=== PATIENT | male | born 1950 | race Caucasian/White ===

== ENCOUNTER 2019-02-02 02:14 | Inpatient (IN) | payer MEDICARE, OTHER ==
[~2019-02-02] VITALS: Ht 177.8 cm; Wt 84.1 kg
[2019-02-02] MEDS ORDERED: normal saline 1000ML IV soln IV ONE (02:30)
[2019-02-02] MEDS ORDERED: piperacillin/tazo 3.375gm/50ml 50 ML IV ONE (02:30)
[2019-02-02] MEDS ORDERED: vancomycin/NS 1 GM ADD-VANTAGE 250 ML IV ONE (02:30)
[2019-02-02] MEDS ORDERED: ondansetron/PF 4mg/2ml inj IV ONE (02:40)
[2019-02-02] MEDS: morphine 4 MG/ML inj SYRINge IV PRN ×3 (02:42→12:22)
[2019-02-02 02:55] LABS: BASOPHILS % (AUTO) 0.2 % (0-1); EOSINOPHILS # (AUTO) 0.1 X10'3 (0-0.9); EOSINOPHILS % (AUTO) 0.7 % (0-6); HEMATOCRIT 42.6 % (42.0-52.0); HEMOGLOBIN 14.6 g/dl (14.0-17.9); LYMPHOCYTES # (AUTO) 1.8 X10'3 (1.1-4.8); LYMPHOCYTES % (AUTO) 14.9 % (21-51); MEAN CORPUSCULAR HGB CONC 34.3 g/dL (33.0-36.5); MEAN CORPUSCULAR VOLUME 98.9 FL (78-98); MEAN PLATELET VOLUME 8.2 FL (7.4-10.4); MONOCYTES # (AUTO) 1.6 X10'3 (0-0.9); MONOCYTES % (AUTO) 13.3 % (2-12); NEUTROPHILS # (AUTO) 8.4 X10'3 (1.8-7.7); NEUTROPHILS % (AUTO) 70.9 % (42-75); PLATELET COUNT 256 X10'3 (140-440); RED BLOOD COUNT 4.31 X10'6 (4.70-6.10); RED CELL DISTRIBUTION WIDTH 13.7 % (11.5-14.5); WHITE BLOOD COUNT 11.9 X10'3 (4.5-11.0)
[2019-02-02 03:14] LABS: ALANINE AMINOTRANSFERASE 22 U/L (12-78); ALBUMIN 3.5 G/DL (3.4-5.0); ALKALINE PHOSPHATASE 104 IU/L (46-116); ANION GAP 9 (8-16); ASPARTATE AMINO TRANSFERASE 10 U/L (10-37); BILIRUBIN,TOTAL 0.3 MG/DL (0.1-1.0); BLOOD UREA NITROGEN 12 MG/DL (7-18); BUN/CREATININE RATIO 12.1 (5.4-32.0); CALCIUM 8.8 MG/DL (8.5-10.1); CHLORIDE 107 MMOL/L (99-107); CREATININE 0.99 MG/DL (0.60-1.10); GLUCOSE 106 MG/DL (70-104); MAGNESIUM 1.7 MG/DL (1.5-2.4); POTASSIUM 3.9 MMOL/L (3.5-5.1); SODIUM 142 MMOL/L (135-145); TOTAL CARBON DIOXIDE 26.3 MMOL/L (24-32); eGFR 76 ML/MIN
[2019-02-02 03:17] LABS: PARTIAL THROMBOPLASTIN TIME 28 SECONDS (22-32)
--- NOTE | 2019-02-02 03:25 | NUR ---
Discussed pt's pain with johana Chaidez; new order received, Toradol 30mg
[2019-02-02] MEDS ORDERED: ketorolac trometh. 30mg/ml inj. IV ONE (03:30)
[2019-02-02] MEDS ORDERED: ketamine 10mg/ml 20ml inj 25 MG in normal saline 100ml IV soln 100.0 ML IV ONE (04:00)
[2019-02-02] MEDS ORDERED: magnesium hydroxide 30ml (MOM) UD suspension PO PRN (04:25)
[2019-02-02] MEDS ORDERED: mag hydrox/Alum hydrox/simeth 30ml oral suspension PO PRN (04:25)
[2019-02-02] MEDS ORDERED: HYDROcodone/acetaminophen 5mg/325mg tablet PO PRN (04:25)
[2019-02-02] MEDS ORDERED: acetaminophen 325mg tablet PO PRN (04:25)
--- NOTE | 2019-02-02 04:59 | NUR ---
Per pt request SO Joselin Minor is taking wallet including [employer] home.
[2019-02-02 05:12] LABS: CLARITY,URINE CLEAR (Clear); COLOR,URINE YELLOW (Yellow); GLUCOSE, URINE NEGATIVE (Neg); KETONES,URINE NEGATIVE (Neg); LEUKOCYTE ESTERASE ,URINE NEGATIVE (Neg); NITRITES, URINE NEGATIVE (Neg); OCCULT BLOOD,URINE TRACE-INTACT (Neg); PROTEIN,URINE NEGATIVE (Neg); UROBILINOGEN,URINE 0.2 E.U/dL (0.2-1.0)
[2019-02-02 05:13] LABS: UA COLLECTION TYPE VOIDED
[2019-02-02 05:18] LABS: BACTERIA,URINE NONE SEEN /HPF (Neg); MUCUS STRANDS NONE SEEN /LPF (Neg); RBC,URINE 0-2 /HPF (0-2); SQUAMOUS EPITHELIAL CELL,UR FEW /LPF (FEW); WBC,URINE 0-4 /HPF (0-4)
[2019-02-02] MEDS: normal saline 1000ml 1,000 ML IV SCH ×3 (05:19→23:42)
[2019-02-02 05:26] LABS: URINE AMPHETAMINE SCREEN NEGATIVE (Neg); URINE BARBITUATE SCREEN NEGATIVE (Neg); URINE BENZODIAZEPINES SCREEN NEGATIVE (Neg); URINE CANNABINOID SCREEN POSITIVE (Neg); URINE COCAINE SCREEN NEGATIVE (Neg); URINE METHADONE SCREEN NEGATIVE (Neg); URINE OPIATE SCREEN POSITIVE (Neg); URINE PHENCYCLIDINE SCREEN NEGATIVE (Neg)
[2019-02-02] MEDS: enoxaparin 40mg/0.4ml syringe SUBCUT SCH (07:49)
--- NOTE | 2019-02-02 08:00 | NUR ---
Received report from EULALIA Jin asked for her to wait for myself or charge to call due to room being cleaned. Sent patient anyway, housekeeping in room cleaning.
[2019-02-02] MEDS: HYDROmorphone inj. 0.5 MG/0.5 ML DISP.SYRIN IV PRN ×2 (08:32→15:51)
[2019-02-02] MEDS ORDERED: magnesium Cl slow-release 64mg tablet PO PRN (08:50)
[2019-02-02] MEDS ORDERED: cefepime 1GM in D5W 50mL 50 ML IV SCH (08:50)
[2019-02-02] MEDS ORDERED: magnesium 4gm in 100ml NS 100 ML IV PRN (08:50)
[2019-02-02] MEDS ORDERED: potassium CL 10mEq/100ml bag 100 ML IV PRN (08:50)
[2019-02-02] MEDS ORDERED: potassium Cl 20 mEq SR tablet PO PRN (08:50)
[2019-02-02 10:00] VITALS: BP 145/70
[2019-02-02] MEDS ORDERED: cefepime 1GM/NS ADD-VANTAGE 50 ML IV SCH (10:33)
[2019-02-02] MEDS ORDERED: TIOT18CA3 IH (11:56)
[2019-02-02] MEDS ORDERED: SERT-153 PO (11:56)
[2019-02-02] MEDS ORDERED: ALBU8.5H8 IH (11:56)
[2019-02-02] MEDS ORDERED: OMEP40CA13 PO (11:56)
[2019-02-02] MEDS ORDERED: CYAN-51 PO (11:56)
[2019-02-02] MEDS ORDERED: CHOL100046 PO (11:56)
[2019-02-02] MEDS ORDERED: BUDE10.2 INH (11:56)
--- NOTE | 2019-02-02 14:22 | NUR ---
Malnutrition consult: Current documented wt is 185 lbs resulting in BMI of 26.6 however wt is pt stated, no wt hx in EMR. Pt admit with right foot cellulitis. Pt out of room during first visit and pt unavailable during second attempted visit, written protein education with RD contact information left at beside. Pt currently on regular diet with documented 75% PO intake likely meeting nutrient needs. Pending physical assessment. Per H&P pt appears well nourished. Pt currently lacks a minimum of two criteria for malnutrition. Will continue to follow. Addendum: 02/02/19 at [address] Amended: Links added.
[2019-02-02] MEDS: VANCOmycin 1250MG/NS 250ml Bag 250 ML IV SCH (15:00)
[2019-02-02] MEDS ORDERED: LORazepam 2 mg/ml vial IV ONE ×2 (15:55)
[2019-02-02] MEDS: cefepime 1GM/NS ADD-VANTAGE 100 ML IV SCH ×2 (16:00→23:42)
[2019-02-02] MEDS: acetaminophen 325mg tablet PO PRN ×2 (17:23→23:01)
[2019-02-02 18:00] VITALS: BP 119/58
--- NOTE | 2019-02-02 18:43 | NUR ---
Problems reprioritized. Patient report given, questions answered & plan of care reviewed with Tali ESTEBAN.
[2019-02-02 19:15] VITALS: BP 107/58
[2019-02-02] MEDS: lactobacillus rhamnosus 10,000 MMU CELLS/CAPSULE PO SCH (20:13)
[2019-02-02 22:00] VITALS: BP 105/62
[2019-02-03] MEDS: HYDROmorphone inj. 0.5 MG/0.5 ML DISP.SYRIN IV PRN ×2 (01:28→11:44)
[2019-02-03] MEDS: VANCOmycin 1250MG/NS 250ml Bag 250 ML IV SCH ×2 (02:07→14:03)
[2019-02-03 06:00] VITALS: BP 121/67
[2019-02-03 06:07] LABS: BASOPHILS % (AUTO) 0.4 % (0-1); EOSINOPHILS % (AUTO) 0.2 % (0-6); HEMATOCRIT 36.2 % (42.0-52.0); HEMOGLOBIN 12.3 g/dl (14.0-17.9); LYMPHOCYTES # (AUTO) 2.6 X10'3 (1.1-4.8); LYMPHOCYTES % (AUTO) 18.6 % (21-51); MEAN CORPUSCULAR HEMOGLOBIN 34.2 PG (27.0-31.0); MEAN CORPUSCULAR HGB CONC 34.1 g/dL (33.0-36.5); MEAN CORPUSCULAR VOLUME 100.4 FL (78-98); MEAN PLATELET VOLUME 8.6 FL (7.4-10.4); MONOCYTES # (AUTO) 1.6 X10'3 (0-0.9); MONOCYTES % (AUTO) 11.6 % (2-12); NEUTROPHILS # (AUTO) 9.6 X10'3 (1.8-7.7); NEUTROPHILS % (AUTO) 69.2 % (42-75); PLATELET COUNT 207 X10'3 (140-440); RED CELL DISTRIBUTION WIDTH 13.9 % (11.5-14.5); WHITE BLOOD COUNT 13.8 X10'3 (4.5-11.0)
[2019-02-03 06:16] LABS: ALBUMIN 2.6 G/DL (3.4-5.0); ANION GAP 8 (8-16); BLOOD UREA NITROGEN 12 MG/DL (7-18); BUN/CREATININE RATIO 14.5 (5.4-32.0); CALCIUM 8.3 MG/DL (8.5-10.1); CHLORIDE 108 MMOL/L (99-107); CREATININE 0.83 MG/DL (0.60-1.10); GLUCOSE 98 MG/DL (70-104); POTASSIUM 3.6 MMOL/L (3.5-5.1); SODIUM 141 MMOL/L (135-145); eGFR > 90 ML/MIN
--- NOTE | 2019-02-03 06:20 | NUR ---
Patient in room ORTHO 4020. I have received report from Tali ESTEBAN and had the opportunity to ask questions and assume patient care.
[2019-02-03] MEDS: cefepime 1GM/NS ADD-VANTAGE 100 ML IV SCH ×3 (07:15→23:58)
[2019-02-03] MEDS: lactobacillus rhamnosus 10,000 MMU CELLS/CAPSULE PO SCH ×2 (07:16→20:00)
[2019-02-03] MEDS: enoxaparin 40mg/0.4ml syringe SUBCUT SCH (07:16)
[2019-02-03] MEDS: HYDROcodone/acetaminophen 10/325mg tab PO PRN ×2 (07:17→10:58)
[2019-02-03 10:00] VITALS: BP 128/73
--- NOTE | 2019-02-03 11:30 | NUR ---
Dr. Fitzpatrick ordered another MRI today and wants the patient to receive Ativan 1 mg and Dilaudid 1 mg right before before MRI. Patient was unable to tolerate MRI yesterday.
[2019-02-03] MEDS ORDERED: LORazepam 2 mg/ml vial IM ONE (11:55)
[2019-02-03] MEDS ORDERED: HYDROmorphone 1 mg/ml syringe IM ONE (11:55)
[2019-02-03] MEDS: HYDROmorphone 1 mg/ml syringe IV PRN ×3 (12:14→16:30)
[2019-02-03] MEDS: nicotine 21mg patch - 24 hr TD SCH (12:17)
[2019-02-03] MEDS ORDERED: LORazepam 2 mg/ml vial IV ONE (12:25)
[2019-02-03] MEDS: normal saline 1000ml 1,000 ML IV SCH ×2 (14:03→23:24)
--- NOTE | 2019-02-03 18:00 | NUR ---
Patient in room ORTHO 4020. I have received report from [place] and had the opportunity to ask questions and assume patient care.
--- NOTE | 2019-02-03 18:00 | NUR ---
Patient in room ORTHO 4020. I have received report from [place] and had the opportunity to ask questions and assume patient care.
--- NOTE | 2019-02-03 18:10 | NUR ---
Patient in room ORTHO 4020. I have received report from EULALIA Gates and had the opportunity to ask questions and assume patient care.
[2019-02-03] MEDS ORDERED: gadopentetate dimeglumine 7.5 MMOL/15 ML syringe ONE (18:11)
--- NOTE | 2019-02-03 18:36 | NUR ---
Problems reprioritized. Patient report given, questions answered & plan of care reviewed with Obie ESTEBAN and Mai ESTEBAN.
[2019-02-03] MEDS: acetaminophen 325mg tablet PO PRN (21:47)
[2019-02-03 22:00] VITALS: BP 124/71
[2019-02-04] MEDS ORDERED: VANCOMYCIN LEVEL IV ONE (01:30)
[2019-02-04 01:44] LABS: BASOPHILS # (AUTO) 0.1 X10'3 (0-0.2); BASOPHILS % (AUTO) 0.4 % (0-1); EOSINOPHILS % (AUTO) 0.1 % (0-6); HEMATOCRIT 37.3 % (42.0-52.0); HEMOGLOBIN 12.7 g/dl (14.0-17.9); LYMPHOCYTES # (AUTO) 1.3 X10'3 (1.1-4.8); LYMPHOCYTES % (AUTO) 9.7 % (21-51); MEAN CORPUSCULAR HEMOGLOBIN 33.9 PG (27.0-31.0); MEAN CORPUSCULAR HGB CONC 34.2 g/dL (33.0-36.5); MEAN CORPUSCULAR VOLUME 99.1 FL (78-98); MEAN PLATELET VOLUME 7.9 FL (7.4-10.4); MONOCYTES # (AUTO) 0.9 X10'3 (0-0.9); NEUTROPHILS # (AUTO) 11.1 X10'3 (1.8-7.7); NEUTROPHILS % (AUTO) 82.8 % (42-75); PLATELET COUNT 214 X10'3 (140-440); RED BLOOD COUNT 3.76 X10'6 (4.70-6.10); RED CELL DISTRIBUTION WIDTH 13.5 % (11.5-14.5); WHITE BLOOD COUNT 13.4 X10'3 (4.5-11.0)
[2019-02-04 01:55] LABS: ALBUMIN 2.5 G/DL (3.4-5.0); ANION GAP 7 (8-16); BLOOD UREA NITROGEN 8 MG/DL (7-18); BUN/CREATININE RATIO 9.5 (5.4-32.0); CALCIUM 8.3 MG/DL (8.5-10.1); CHLORIDE 107 MMOL/L (99-107); CREATININE 0.84 MG/DL (0.60-1.10); GLUCOSE 172 MG/DL (70-104); POTASSIUM 3.2 MMOL/L (3.5-5.1); SODIUM 140 MMOL/L (135-145); TOTAL CARBON DIOXIDE 26.3 MMOL/L (24-32); VANCOMYCIN,TROUGH 9.3 UG/ML (6.0-14.0); eGFR > 90 ML/MIN
[2019-02-04] MEDS: VANCOmycin 1250MG/NS 250ml Bag 250 ML IV SCH (01:57)
[2019-02-04] MEDS: potassium Cl 20 mEq SR tablet PO PRN ×3 (02:03→17:07)
[2019-02-04] MEDS: HYDROmorphone 1 mg/ml syringe IV PRN ×2 (04:36→09:56)
[2019-02-04] MEDS: ondansetron/PF 4mg/2ml inj IV PRN (05:09)
[2019-02-04] MEDS: normal saline 1000ml 1,000 ML IV SCH ×2 (05:48→21:19)
--- NOTE | 2019-02-04 06:28 | NUR ---
Problems reprioritized. Patient report given, questions answered & plan of care reviewed with EULALIA Horn.
[2019-02-04 06:30] VITALS: BP 128/96
--- NOTE | 2019-02-04 07:03 | NUR ---
RECEIVED REPORT FROM PEDRO ESTEBAN
[2019-02-04] MEDS ORDERED: LIDOcaine 1% 30ml preserv. free vial SQ STA (07:33)
[2019-02-04] MEDS ORDERED: nicotine 21mg patch - 24 hr TD SCH (08:00)
[2019-02-04] MEDS: lactobacillus rhamnosus 10,000 MMU CELLS/CAPSULE PO SCH ×2 (08:00→20:28)
[2019-02-04] MEDS: enoxaparin 40mg/0.4ml syringe SUBCUT SCH (08:00)
[2019-02-04] MEDS: cefepime 1GM/NS ADD-VANTAGE 100 ML IV SCH ×3 (08:07→23:28)
[2019-02-04] MEDS: nicotine 21mg patch - 24 hr TD SCH (08:07)
[2019-02-04 10:00] VITALS: BP 124/71
[2019-02-04] MEDS ORDERED: HYDROmorphone 1 mg/ml syringe IM ONE (10:35)
[2019-02-04] MEDS: HYDROcodone/acetaminophen 10/325mg tab PO PRN ×3 (11:09→20:30)
[2019-02-04] MEDS ORDERED: LORazepam 2 mg/ml vial IV ONE (11:20)
[2019-02-04 17:00] VITALS: BP 115/57
--- NOTE | 2019-02-04 18:10 | NUR ---
report given to Ellen marques
--- NOTE | 2019-02-04 18:15 | NUR ---
Patient in room ORTHO 4020. I have received report from Maryam ZENDEJAS and Justina ESTEBAN and had the opportunity to ask questions and assume patient care.
[2019-02-04 22:00] VITALS: BP 110/57
[2019-02-04] MEDS: LORazepam 2 mg/ml vial IV PRN (23:14)
[2019-02-05] MEDS: normal saline 1000ml 1,000 ML IV SCH ×3 (02:25→18:57)
--- NOTE | 2019-02-05 02:32 | NUR ---
Assessment of IV revealed patient had some how tore a port off of his Y-port, IV no longer patent to right wrist. IV discontinued with tip to canula intact. Pt had no c/o of discomfort or pain. New 20g PIV started in [facility] on one attempt. AM labs drawn with IV start.
[2019-02-05 02:44] LABS: BASOPHILS % (AUTO) 0.2 % (0-1); EOSINOPHILS % (AUTO) 0.3 % (0-6); HEMATOCRIT 36.1 % (42.0-52.0); HEMOGLOBIN 12.1 g/dl (14.0-17.9); LYMPHOCYTES # (AUTO) 1.4 X10'3 (1.1-4.8); LYMPHOCYTES % (AUTO) 14.6 % (21-51); MEAN CORPUSCULAR HEMOGLOBIN 33.4 PG (27.0-31.0); MEAN CORPUSCULAR HGB CONC 33.5 g/dL (33.0-36.5); MEAN CORPUSCULAR VOLUME 99.8 FL (78-98); MEAN PLATELET VOLUME 8.3 FL (7.4-10.4); MONOCYTES # (AUTO) 1.2 X10'3 (0-0.9); MONOCYTES % (AUTO) 12.4 % (2-12); NEUTROPHILS # (AUTO) 7.1 X10'3 (1.8-7.7); NEUTROPHILS % (AUTO) 72.5 % (42-75); PLATELET COUNT 208 X10'3 (140-440); RED BLOOD COUNT 3.62 X10'6 (4.70-6.10); RED CELL DISTRIBUTION WIDTH 13.7 % (11.5-14.5); WHITE BLOOD COUNT 9.8 X10'3 (4.5-11.0)
[2019-02-05 02:58] LABS: ALBUMIN 2.4 G/DL (3.4-5.0); ANION GAP 7 (8-16); BLOOD UREA NITROGEN 7 MG/DL (7-18); BUN/CREATININE RATIO 8.2 (5.4-32.0); CALCIUM 8.2 MG/DL (8.5-10.1); CHLORIDE 105 MMOL/L (99-107); CREATININE 0.85 MG/DL (0.60-1.10); GLUCOSE 103 MG/DL (70-104); POTASSIUM 3.8 MMOL/L (3.5-5.1); SODIUM 139 MMOL/L (135-145); TOTAL CARBON DIOXIDE 27.2 MMOL/L (24-32); eGFR 90 ML/MIN
[2019-02-05] MEDS: HYDROcodone/acetaminophen 10/325mg tab PO PRN ×4 (05:08→23:04)
[2019-02-05 06:00] VITALS: BP 128/66
--- NOTE | 2019-02-05 06:37 | NUR ---
Problems reprioritized. Patient report given, questions answered & plan of care reviewed with Audrey ESTEBAN.
--- NOTE | 2019-02-05 06:38 | NUR ---
Patient in room ORTHO 4020. I have received report from Ellen ESTEBAN and had the opportunity to ask questions and assume patient care.
[2019-02-05] MEDS: cefepime 1GM/NS ADD-VANTAGE 100 ML IV SCH (07:53)
[2019-02-05] MEDS: lactobacillus rhamnosus 10,000 MMU CELLS/CAPSULE PO SCH ×2 (07:53→19:53)
[2019-02-05] MEDS: nicotine 21mg patch - 24 hr TD SCH (07:54)
[2019-02-05] MEDS: enoxaparin 40mg/0.4ml syringe SUBCUT SCH (07:54)
[2019-02-05 10:00] VITALS: BP 124/73
[2019-02-05] MEDS: cefazolin/dext.iso 2gm/50ml 100 ML IV SCH ×2 (15:18→23:06)
--- NOTE | 2019-02-05 16:43 | NUR ---
WOUND INFECTION EDUCATION PROVIDED BY WOUND CARE 1. Patient instructed to call their primary doctor, or go the ED immediately if any of the following symptoms occur: * Increased pain in wound * Increase in drainage from the wound * Redness in the skin surrounding the wound * Warmth in the skin surrounding the wound * Bleeding from the wound * Temperature of 101 or greater 2. If any of these occur while in the hospital tell a nurse immediately. Addendum: 02/05/19 at 1643 by Pura Jin RN Amended: Links added.
[2019-02-05 18:00] VITALS: BP 134/80
--- NOTE | 2019-02-05 18:11 | NUR ---
Problems reprioritized. Patient report given, questions answered & plan of care reviewed with Ellen ESTEBAN.
--- NOTE | 2019-02-05 18:15 | NUR ---
Patient in room ORTHO 4020. I have received report from Audrey ESTEBAN and had the opportunity to ask questions and assume patient care.
[2019-02-05 22:00] VITALS: BP 117/65
[2019-02-05] MEDS: ondansetron/PF 4mg/2ml inj IV PRN (23:03)
[2019-02-05] MEDS ORDERED: VANCOMYCIN LEVEL IV ONE (23:30)
[2019-02-06] MEDS: LORazepam 2 mg/ml vial IV PRN (03:19)
[2019-02-06 05:18] LABS: BASOPHILS % (AUTO) 0.3 % (0-1); EOSINOPHILS % (AUTO) 0.8 % (0-6); HEMATOCRIT 35.1 % (42.0-52.0); HEMOGLOBIN 11.9 g/dl (14.0-17.9); LYMPHOCYTES # (AUTO) 1.2 X10'3 (1.1-4.8); LYMPHOCYTES % (AUTO) 20.9 % (21-51); MEAN CORPUSCULAR HEMOGLOBIN 33.4 PG (27.0-31.0); MEAN CORPUSCULAR HGB CONC 33.9 g/dL (33.0-36.5); MEAN CORPUSCULAR VOLUME 98.6 FL (78-98); MEAN PLATELET VOLUME 7.6 FL (7.4-10.4); MONOCYTES % (AUTO) 16.9 % (2-12); NEUTROPHILS # (AUTO) 3.5 X10'3 (1.8-7.7); NEUTROPHILS % (AUTO) 61.1 % (42-75); PLATELET COUNT 227 X10'3 (140-440); RED BLOOD COUNT 3.56 X10'6 (4.70-6.10); RED CELL DISTRIBUTION WIDTH 13.7 % (11.5-14.5); WHITE BLOOD COUNT 5.7 X10'3 (4.5-11.0)
[2019-02-06] MEDS: normal saline 1000ml 1,000 ML IV SCH ×2 (05:20→17:31)
[2019-02-06 05:29] LABS: ALBUMIN 2.2 G/DL (3.4-5.0); ANION GAP 6 (8-16); BLOOD UREA NITROGEN 6 MG/DL (7-18); BUN/CREATININE RATIO 7.6 (5.4-32.0); CALCIUM 8.2 MG/DL (8.5-10.1); CHLORIDE 107 MMOL/L (99-107); CREATININE 0.79 MG/DL (0.60-1.10); GLUCOSE 128 MG/DL (70-104); POTASSIUM 3.5 MMOL/L (3.5-5.1); SODIUM 141 MMOL/L (135-145); TOTAL CARBON DIOXIDE 27.8 MMOL/L (24-32); eGFR > 90 ML/MIN
[2019-02-06 06:00] VITALS: BP 115/58
--- NOTE | 2019-02-06 06:14 | NUR ---
Problems reprioritized. Patient report given, questions answered & plan of care reviewed with Audrey ESTEBAN.
[2019-02-06 07:05] LABS: PLATELET ESTIMATE NORMAL; TOTAL CELLS COUNTED 100
[2019-02-06] MEDS: cefazolin/dext.iso 2gm/50ml 100 ML IV SCH ×2 (08:45→17:31)
[2019-02-06] MEDS: nicotine 21mg patch - 24 hr TD SCH (08:46)
[2019-02-06] MEDS: lactobacillus rhamnosus 10,000 MMU CELLS/CAPSULE PO SCH ×2 (08:46→19:06)
[2019-02-06] MEDS: enoxaparin 40mg/0.4ml syringe SUBCUT SCH (08:46)
[2019-02-06] MEDS: HYDROcodone/acetaminophen 10/325mg tab PO PRN ×3 (08:47→17:31)
[2019-02-06] MEDS ORDERED: NICO-687 TD (09:40)
[2019-02-06] MEDS ORDERED: LACT1CAP26 PO (09:40)
[2019-02-06] MEDS: HYDROmorphone inj. 0.5 MG/0.5 ML DISP.SYRIN IV PRN (10:11)
[2019-02-06 18:00] VITALS: BP 130/66
--- NOTE | 2019-02-06 18:35 | NUR ---
Problems reprioritized. Patient report given, questions answered & plan of care reviewed with Ellen ESTEBAN.
--- NOTE | 2019-02-06 18:36 | NUR ---
Patient in room ORTHO 4020. I have received report from Audrey ESTEBAN and had the opportunity to ask questions and assume patient care.
[2019-02-06] MEDS: sennosides/docusate sodium tablet PO SCH (19:07)
[2019-02-06] MEDS: HYDROmorphone 1 mg/ml syringe IV PRN (21:04)
[2019-02-06 22:00] VITALS: BP 134/72
[2019-02-07] MEDS: cefazolin/dext.iso 2gm/50ml 100 ML IV SCH (00:30)
[2019-02-07] MEDS: HYDROcodone/acetaminophen 10/325mg tab PO PRN ×3 (00:34→09:49)
[2019-02-07] MEDS: normal saline 1000ml 1,000 ML IV SCH (03:40)
[2019-02-07 06:00] LABS: BASOPHILS % (AUTO) 0.4 % (0-1); EOSINOPHILS # (AUTO) 0.2 X10'3 (0-0.9); EOSINOPHILS % (AUTO) 2.6 % (0-6); HEMATOCRIT 35.7 % (42.0-52.0); HEMOGLOBIN 12.3 g/dl (14.0-17.9); LYMPHOCYTES # (AUTO) 1.7 X10'3 (1.1-4.8); LYMPHOCYTES % (AUTO) 27.3 % (21-51); MEAN CORPUSCULAR HEMOGLOBIN 33.8 PG (27.0-31.0); MEAN CORPUSCULAR HGB CONC 34.5 g/dL (33.0-36.5); MEAN PLATELET VOLUME 7.4 FL (7.4-10.4); MONOCYTES # (AUTO) 0.8 X10'3 (0-0.9); MONOCYTES % (AUTO) 13.6 % (2-12); NEUTROPHILS # (AUTO) 3.4 X10'3 (1.8-7.7); NEUTROPHILS % (AUTO) 56.1 % (42-75); PLATELET COUNT 256 X10'3 (140-440); RED BLOOD COUNT 3.64 X10'6 (4.70-6.10); RED CELL DISTRIBUTION WIDTH 13.4 % (11.5-14.5); WHITE BLOOD COUNT 6.1 X10'3 (4.5-11.0)
[2019-02-07 06:10] VITALS: BP 126/57
[2019-02-07 06:12] LABS: ALBUMIN 2.3 G/DL (3.4-5.0); ANION GAP 7 (8-16); BLOOD UREA NITROGEN 11 MG/DL (7-18); BUN/CREATININE RATIO 12.2 (5.4-32.0); CHLORIDE 106 MMOL/L (99-107); GLUCOSE 106 MG/DL (70-104); POTASSIUM 3.7 MMOL/L (3.5-5.1); SODIUM 140 MMOL/L (135-145); TOTAL CARBON DIOXIDE 27.4 MMOL/L (24-32); eGFR 84 ML/MIN
--- NOTE | 2019-02-07 06:37 | NUR ---
Problems reprioritized. Patient report given, questions answered & plan of care reviewed with Hayley ESTEBAN and Laura ESTEBAN.
[2019-02-07] MEDS: sennosides/docusate sodium tablet PO SCH (07:51)
[2019-02-07] MEDS: lactobacillus rhamnosus 10,000 MMU CELLS/CAPSULE PO SCH (07:51)
[2019-02-07] MEDS: enoxaparin 40mg/0.4ml syringe SUBCUT SCH (07:52)
[2019-02-07] MEDS: nicotine 21mg patch - 24 hr TD SCH (07:52)
[2019-02-07] MEDS ORDERED: cefazolin/dext.iso 2gm/50ml 50 ML IV SCH (08:00)
[2019-02-07 10:00] VITALS: BP 112/75
--- NOTE | 2019-02-07 13:45 | NUR ---
Patient discharge at this time. Patient given a time for appointment at 230pm tomorrow at [facility]. He was given to Dr. Guevara number to make appointment out-patient. He was given wound clinic phone number to make appointment for dressing changes. [facility] was [facility]er [facility]. Patient had new prescriptions called into [facility].
== END 2019-02-07 13:45 | disposition home or self-care (01) | DRG 501 ==
LOC: ER 02:14 → ORTHO 4S 07:53 → CMPBEDREQ 02-05 19:33
PROVIDERS: ADMIT Hospitalist; ATTEND Hospitalist
PROC: 0Y9M0ZZ Drainage of Right Foot, Open Approach (ICD-10-PCS; principal; 2019-02-04)
PROC: 0JDQ0ZZ Extraction of Right Foot Subcutaneous Tissue and Fascia, Open Approach (ICD-10-PCS; 2019-02-04)
DX: M86.171 Other acute osteomyelitis, right ankle and foot (principal); M60.076 Infective myositis, right toe(s); L03.115 Cellulitis of right lower limb; L02.611 Cutaneous abscess of right foot; B95.61 Methicillin susceptible Staphylococcus aureus infection as the cause of diseases classified elsewhere; F17.210 Nicotine dependence, cigarettes, uncomplicated; J44.9 Chronic obstructive pulmonary disease, unspecified; K21.9 Gastro-esophageal reflux disease without esophagitis; M19.90 Unspecified osteoarthritis, unspecified site; F41.9 Anxiety disorder, unspecified; G89.29 Other chronic pain; M54.9 Dorsalgia, unspecified; F12.10 Cannabis abuse, uncomplicated; Z88.2 Allergy status to sulfonamides; Z88.8 Allergy status to other drugs, medicaments and biological substances; Z59.0 Homelessness; Z71.6 Tobacco abuse counseling; Z79.899 Other long term (current) drug therapy
CPT/HCPCS: 36415; 71045; 73630; 73723; 80048; 80053; 80202; 80305; 81001; 83605; 83735; 84145; 85025; 85610; 85651; 85730; 86140; 87040; 87070; 87077; 87186; 93005; 96365; 96367; 96372; 96375; 97116; 97161; 99285; A9579; G0378; J0692; J1170; J1650; J1885; J2060; J2270; J2405; J2543; J3370; J7030

== ENCOUNTER 2019-02-08 11:33 | Emergency (ER) | payer MEDICARE, OTHER ==
[~2019-02-08] VITALS: Ht 177.8 cm; Wt 68.0 kg
[~2019-02-08 11:33] MED LIST: ALBU8.5H8 IH; BUDE10.2 INH; CHOL100046 PO; CYAN-51 PO; LACT1CAP26 PO; NICO-687 TD; OMEP40CA13 PO; SERT-153 PO; TIOT18CA3 IH
[2019-02-08 11:40] VITALS: BP 126/72
--- NOTE | 2019-02-08 11:59 | NUR ---
PT HAD AN I&D TO HIS RIGHT FOOT WITHIN THE LAST WEEK, WAS TOLD TO COME BACK AT 10 AM TODAY FOR WOUND CHECK. PT STATES HE WENT TO WOUND CARE AND WAS TOLD HE NEED[facility] TO [facility], TO COME BACK IN TWO DAYS. PT DID NOT GET HIS WOUND TREATED
== END 2019-02-08 13:47 | disposition home or self-care (01) ==
LOC: ER 11:34
DX: S91.301D Unspecified open wound, right foot, subsequent encounter (principal); M79.89 Other specified soft tissue disorders; J44.9 Chronic obstructive pulmonary disease, unspecified; M19.90 Unspecified osteoarthritis, unspecified site; Z88.2 Allergy status to sulfonamides; Z88.8 Allergy status to other drugs, medicaments and biological substances; Z79.899 Other long term (current) drug therapy; X58.XXXD Exposure to other specified factors, subsequent encounter
CPT/HCPCS: 99284

== ENCOUNTER 2019-02-13 15:18 | Emergency (ER) | payer MEDICARE, OTHER ==
[~2019-02-13] VITALS: Ht 177.8 cm; Wt 80.0 kg
[2019-02-13 16:00] VITALS: BP 135/76
== END 2019-02-13 17:26 | disposition home or self-care (01) ==
LOC: ER 15:19
DX: T81.89XA Other complications of procedures, not elsewhere classified, initial encounter (principal); J44.9 Chronic obstructive pulmonary disease, unspecified; M19.90 Unspecified osteoarthritis, unspecified site; Z88.2 Allergy status to sulfonamides; Z88.8 Allergy status to other drugs, medicaments and biological substances; Z79.899 Other long term (current) drug therapy; Y83.8 Other surgical procedures as the cause of abnormal reaction of the patient, or of later complication, without mention of misadventure at the time of the procedure; Y92.89 Other specified places as the place of occurrence of the external cause
CPT/HCPCS: 99281; 99283